=== PATIENT | female | born 1990 | race African-American/Black ===

== ENCOUNTER 2017-12-31 21:46 | Emergency (ER) | payer SELFPAY ==
[2017-12-31] MEDS ORDERED: Promethazine HCl 25 MG/ML VIAL ONE (22:52)
[2017-12-31] MEDS ORDERED: Morphine 4 MG/ML VIAL ONE (22:52)
[2017-12-31 23:29] LABS: Bilirubin Negative (Negative); Blood, Urine Negative (Negative); Clarity CLEAR (Clear); Glucose, Urine (Dipstick) >=1000 mg/dL (Negative); Leukocyte Negative (Negative); Nitrite Negative (Negative); Protein, Urine (Dipstick) Negative (Neg-Trace); Specific Gravity, Urine 1.031 (1.002-1.036); pH, Urine 5.5 (5.0-9.0)
[2017-12-31 23:29] LABS: #Eosinphils 0.3 thou/uL (0.0-0.7); #Lymphocytes 2.9 thou/uL (1.20-3.40); #Monocytes 0.9 thou/uL (0.11-0.59); #Neutrophils 4.1 thou/uL (1.40-6.50); %Basophils 0.6 % (0.0-1.0); %Eosinophils 3.3 % (0.0-10.0); %Lymphocytes 35.6 % (21.0-51.0); %Monocytes 10.7 % (0.0-10.0); %Neutrophils 49.9 % (42.0-75.0); Hemoglobin 14.7 g/dL (12.0-16.0); Mean Corpuscular HGB CONC 32.2 g/dL (32.0-36.0); Mean Corpuscular Hemoglobin 28.5 pg (27.0-31.0); Mean Corpuscular Volume 88.6 fl (81.0-99.0); Mean Platelet Volume 6.9 fL (7.4-10.4); Platelet Count 285 thou/uL (130-400); RBC Distribution Width 11.9 % (11.5-14.5); Red Blood Cell (RBC) Count 5.15 mill/uL (4.20-5.40); White Blood Cell (WBC) Count 8.1 thou/uL (4.8-10.8)
[2017-12-31 23:42] LABS: BHCG - Serum Negative (NEGATIVE); Pregs Control Background? CLEAR/WHITE (CLR/WHITE); Pregs Control Bar Appear? YES (CONTROL BAR)
[2017-12-31 23:45] LABS: ALT (SGPT) 26 U/L (8-55); AST (SGOT) 24 U/L (5-34); Albumin 3.9 g/dL (3.5-5.0); Alkaline Phosphatase 68 U/L (40-150); Anion Gap 12 mmol/L (10-20); BUN (Urea Nitrogen) 16 mg/dL (7.0-18.7); Bilirubin, Total 0.3 mg/dL (0.2-1.2); Calc. Creatinine Clearance 0 mL/min (70-130); Calcium 9.4 mg/dL (7.8-10.44); Carbon Dioxide 18 mmol/L (22-29); Chloride 109 mmol/L (98-107); Estimated GFR-MDRD Greater than 90; Globulin 3.4 g/dL (2.4-3.5); Glucose 114 mg/dL (70-105); Lipase 27 U/L (8-78); Potassium 4.2 mmol/L (3.5-5.1); Protein, Total 7.3 g/dL (6.0-8.3); Sodium 135 mmol/L (136-145)
== END 2018-01-01 00:07 | disposition home or self-care (01) ==
LOC: ERS 21:46
DX: I10 Essential (primary) hypertension; R10.814 Left lower quadrant abdominal tenderness; Z79.4 Long term (current) use of insulin; E11.9 Type 2 diabetes mellitus without complications; R10.32 Left lower quadrant pain
CPT/HCPCS: 36415; 80053; 81003; 83690; 84703; 85025; 96361; 96374; 96375; J2270; J2550

== ENCOUNTER 2018-01-25 06:57 | Outpatient (CLI) | payer OTHER ==
--- NOTE | 2018-01-25 15:23 | NM ---
NUCLEAR MEDICINE GASTRIC EMPTYING SCAN: DATE: 01/25/18. HISTORY: A 27-year-old female with nausea and vomiting, unspecified, for 2 months. TECHNIQUE: 2 mCi of Technetium 99m-sulfur colloid served in oatmeal. Anterior scintigraphic images of the abdomen obtained immediately, and at 30 minutes, 1 hour, 2 hours , and 3 hours. Counts obtained over the stomach, and used to plot a time-activity curve. FINDINGS: 30 minutes: 68% empty. 1 hour: 87% empty. 2 hour: 98% empty. 3 hour: 98% empty. 4 hour: 99% empty. Halftime of emptying is 25 minutes. IMPRESSION: Rapid gastric emptying. POS: RUDY
== END 2018-01-25 06:58 | disposition home or self-care (01) ==
LOC: NM 06:57
PROVIDERS: ATTEND Internal Medicine Gastroenterology
DX: R11.2 Nausea with vomiting, unspecified (principal)
CPT/HCPCS: 78264; A9541

== ENCOUNTER 2018-04-09 22:36 | Emergency (ER) | payer OTHER | END 2018-04-09 23:36 | disposition left against medical advice (07) | LOC: ERS 22:36 | DX: Z53.21 Procedure and treatment not carried out due to patient leaving prior to being seen by health care provider (principal) ==

== ENCOUNTER 2021-01-31 00:30 | Emergency (ER) | payer MEDICAID, OTHER ==
[2021-01-31] MEDS ORDERED: Proparacaine 0.5% Opth 15 ML BOT ONE (01:23)
[2021-01-31] MEDS ORDERED: Fluorescein Opthalmic Strip ONE (01:23)
== END 2021-01-31 02:24 | disposition home or self-care (01) ==
LOC: ERS 00:30
DX: S05.01XA Injury of conjunctiva and corneal abrasion without foreign body, right eye, initial encounter (principal); E11.9 Type 2 diabetes mellitus without complications; E78.5 Hyperlipidemia, unspecified; I10 Essential (primary) hypertension; Z79.899 Other long term (current) drug therapy; W22.8XXA Striking against or struck by other objects, initial encounter
CPT/HCPCS: 99283

== ENCOUNTER 2022-10-18 10:29 | Outpatient (CLI) | payer OTHER | END 2022-10-18 10:30 | disposition home or self-care (01) | LOC: TBSIIMAG 10:29 | PROVIDERS: ATTEND Neurological Surgery | DX: M51.26 Other intervertebral disc displacement, lumbar region (principal); M47.816 Spondylosis without myelopathy or radiculopathy, lumbar region | CPT/HCPCS: 72148 ==

== ENCOUNTER 2025-07-11 20:55 | Emergency (ER) | payer SELFPAY, OTHER ==
[~2025-07-11 20:55] MED LIST: Iopamidol-370 76% 500 ML MDV (1 ML CHARGE) ONE
[2025-07-11 21:50] LABS: #Basophils 0.04 10x3/uL (0.0-0.2); #Eosinophils 0.06 10x3/uL (0.0-0.7); #Monocytes 0.61 10x3/uL (0.11-0.59); #Neutrophils 2.21 10x3/uL (1.40-6.50); %Basophils 0.9 % (0.0-1.0); %Eosinophils 1.3 % (0.0-10.0); %Lymphocytes 34.2 % (21.0-51.0); %Monocytes 13.7 % (0.0-10.0); %Neutrophils 49.7 % (42.0-75.0); Hematocrit 42.3 % (36.0-47.0); Hemoglobin 13.6 g/dL (12.0-16.0); Mean Corpuscular Hemoglobin 29.0 pg (27.0-31.0); Mean Corpuscular Volume 90.2 fL (78.0-98.0); Platelet Count 265 10x3/uL (130-400); Red Blood Cell (RBC) Count 4.69 mill/uL (4.20-5.40); White Blood Cell (WBC) Count 4.45 10x3/uL (4.8-10.8)
[2025-07-11 22:04] LABS: INR-International Normal Ratio 1.0; PTT 25.6 sec (22.9-36.1); Prothrombin Time 12.7 sec (12.0-14.7)
[2025-07-11 22:15] LABS: ALT (SGPT) 21 U/L (Less than 34); AST (SGOT) 45 U/L (11-34); Albumin 3.8 g/dL (3.1-4.5); Alkaline Phosphatase 60 U/L (40-110); Anion Gap 14 mmol/L (10-20); BUN (Urea Nitrogen) 10 mg/dL (7.0-18.7); Bilirubin, Total 0.7 mg/dL (0.3-1.2); Calc. Creatinine Clearance 0 mL/min (70-130); Calcium 9.4 mg/dL (7.8-10.44); Carbon Dioxide 25 mmol/L (22-29); Chloride 108 mmol/L (98-107); Globulin 3.5 g/dL (2.4-3.5); Glucose 179 mg/dL (70-105); Lipase 36 U/L (8-78); Potassium 3.8 mmol/L (3.5-5.1); Sodium 143 mmol/L (136-145)
[2025-07-11] MEDS ORDERED: Ketorolac Tromethamine 30 MG (1 mL) VIAL ONE ×2 (22:33→23:23)
[2025-07-11] MEDS ORDERED: Cyclobenzaprine 10 MG TAB ONE (23:22)
== END 2025-07-11 23:29 | disposition home or self-care (01) ==
LOC: ERS 20:55
DX: S16.1XXA Strain of muscle, fascia and tendon at neck level, initial encounter (principal); S80.11XA Contusion of right lower leg, initial encounter; M54.9 Dorsalgia, unspecified; I10 Essential (primary) hypertension; E11.9 Type 2 diabetes mellitus without complications; V49.9XXA Car occupant (driver) (passenger) injured in unspecified traffic accident, initial encounter; Y92.410 Unspecified street and highway as the place of occurrence of the external cause
CPT/HCPCS: 70450; 71045; 71260; 72125; 72170; 74177; 80053; 80307; 83690; 85025; 85610; 85730; 86850; 86900; 86901; 93005; 94760; 96374; 96376; J1885